=== PATIENT | male | born 1980 ===

== ENCOUNTER 2019-01-14 03:12 | Emergency (ER) | payer OTHER ==
[~2019-01-14] VITALS: Ht 190.5 cm; Wt 104.3 kg
[~2019-01-14 03:12] MED LIST: ESCITALOPRAM OX20 MG PO; FLECAINIDE ACE100 MG PO; FOLBIC RF TABL1 EACH PO; MELATONIN1 MG PO; METOPROLOL SUCC50 MG PO; TRAZODONE HCL50 MG PO
--- OUTSIDE RECORDS SUMMARY | 2019-01-14 03:14 | XMS ---
PreManage Notification: JEANMARIE RAMSEY [employer] Events No recent Security Events currently on file CRITERIA MET - 6 ED Visits in 6 Months CARE PROVIDERS [facility] Current PHONE: [phone] Cait has no Care Guidelines for this patient. [facility]12 MO.) [facility] [address] TOTAL 7 NOTE: Visits indicate total known visits. ED/UCC VISIT TRACKING (12 MO.) 01/14/2019 03:12 [facility] [place] TYPE: Emergency COMPLAINT: - POSS BROKEN TOE 11/05/2018 12:25 [facility] [place] TYPE: Emergency COMPLAINT: - "Heart Racing" DIAGNOSES: - Tobacco use - Nontoxic single thyroid nodule - Psychophysiologic insomnia - Other specified anxiety disorders - Supraventricular tachycardia - Other fdc (current) drug therapy 10/02/2018 15:47 [facility] [place] TYPE: Emergency COMPLAINT: - CHEST PAIN DIAGNOSES: - Other specified anxiety disorders - Bee allergy status - Nicotine dependence, unspecified, uncomplicated - Dehydration - Supraventricular tachycardia - Nontoxic single thyroid nodule 07/27/2018 18:46 [facility] [place] TYPE: Emergency COMPLAINT: - MIGRAINE DIAGNOSES: - Other specified anxiety disorders - Allergy status to other drugs, medicaments and biological substances status - Cluster headache syndrome, unspecified, not intractable 07/25/2018 09:33 [facility] [place] TYPE: Emergency COMPLAINT: - MIGRAINE HEADACHE DIAGNOSES: - Anxiety disorder, unspecified - Supraventricular tachycardia - Alcohol dependence, uncomplicated - Migraine, unspecified, not intractable, without status migrainosus - Migraine, unspecified, not intractable, without status migrainosus - Alcohol dependence, uncomplicated - Nicotine dependence, unspecified, uncomplicated - Panic disorder [episodic paroxysmal anxiety] - Psychophysiologic insomnia - Major depressive disorder, single episode, unspecified 07/20/2018 22:35 [facility] [place] TYPE: Emergency COMPLAINT: - RACING HEART BEAT, SOB, NAUSEA FOR THE PAST 30-40 MINUTES DIAGNOSES: - Supraventricular tachycardia - Elevated blood-pressure reading, without diagnosis of hypertension - Other specified anxiety disorders - Elevated blood-pressure reading, without diagnosis of hypertension - Psychophysiologic insomnia - Nicotine dependence, unspecified, uncomplicated - Acute stress reaction - Acute stress reaction - Supraventricular tachycardia - Psychophysiologic insomnia - Nicotine dependence, unspecified, uncomplicated - Other specified anxiety disorders 07/14/2018 22:26 [facility] [place] TYPE: Emergency COMPLAINT: - Cluster Headache DIAGNOSES: - Allergy status to other drugs, medicaments and biological substances status - Allergy status to other drugs, medicaments and biological substances status - Other specified anxiety disorders - Chronic cluster headache, not intractable - Other specified anxiety disorders - Tobacco use - Alcohol dependence, uncomplicated - Alcohol dependence, uncomplicated - Chronic cluster headache, not intractable - Tobacco use - Psychophysiologic insomnia INPATIENT VISIT TRACKING (12 MO.) No inpatient visits to display in this time frame [email or web address]
[2019-01-14] MEDS ORDERED: NORCO 5-325 TA1 EACH PO (05:57)
== END 2019-01-14 06:11 | disposition home or self-care (01) ==
LOC: ED 03:12
DX: S92.512A Displaced fracture of proximal phalanx of left lesser toe(s), initial encounter for closed fracture (principal); W01.198A Fall on same level from slipping, tripping and stumbling with subsequent striking against other object, initial encounter; I10 Essential (primary) hypertension; Z87.891 Personal history of nicotine dependence; Z79.899 Other long term (current) drug therapy
CPT/HCPCS: 28515; 73660; 99283-25